=== PATIENT | female | born 1995 | race Caucasian/White ===

== ENCOUNTER → 2017-04-30 | Outpatient (REF) | payer OTHER ==
[~2017-04-30] MED LIST: ALBU8.5H IH; FLUT1DIS28 IH
[2017-04-30 20:22] LABS: PLATELET COUNT, AUTOMATED 234 K/uL (150-450)
== END ==
PROVIDERS: ATTEND Nurse Practitioner Family
DX: R10.9 Unspecified abdominal pain (principal)
CPT/HCPCS: 82040; 82247; 82310; 82374; 82435; 82565; 82947; 84075; 84132; 84155; 84295; 84450; 84460; 84520; 85025

== ENCOUNTER → 2017-12-29 | Outpatient (REF) | payer OTHER ==
[2017-12-29 18:13] LABS: PLATELET COUNT, AUTOMATED 215 K/uL (150-450)
== END ==
PROVIDERS: ATTEND Nurse Practitioner Family
DX: R10.31 Right lower quadrant pain (principal)
CPT/HCPCS: 82040; 82150; 82247; 82310; 82374; 82435; 82565; 82947; 83690; 84075; 84132; 84155; 84295; 84450; 84460; 84520; 85025

== ENCOUNTER 2018-09-10 20:54 | Emergency (ER) | payer BC, OTHER ==
--- NOTE | 2018-09-10 21:05 | ER Report ---
History and Physical Time Seen By MD: 21:02 HPI/ROS CHIEF COMPLAINT: abdominal pain HISTORY OF PRESENT ILLNESS: This is a 23 year old female. She has had abdominal pain for several days, now with nausea and vomiting and started having diarrhea today. No fevers or chills. Having abdominal pain, started in epigastric area, now down to bilateral lower abdomen. No radiation to back. No trouble with urination. No cough or shortness of breath. On continuous control, no periods, no vaginal bleeding or discharge. No possible bad food or water exposure. No sick contacts. Allergies: Coded Allergies: amoxicillin (Verified Allergy, Unknown, 05/24/16) clavulanic acid (Verified Allergy, Unknown, 05/24/16) Home Meds Active Scripts Ondansetron 4 Mg Odt (ONDANSETRON 4 MG ODT) 4 Mg Tab.rapdis, 4 MG PO Q6H PRN for NAUSEA/VOMITING, #20 TAB 0 Refills Prov:JORDAN RANGEL MD 09/10/18 Reported Medications Norgestimate-Ethinyl Estradiol (SPRINTEC) 1 Each Tablet, 1 EACH PO 09/10/18 Fluticasone/Vilanterol (Breo Ellipta 200-25 Mcg INH) 1 Each Blst.w.dev 09/10/18 Albuterol Sulfate 90 Mcg/Act (PROAIR HFA 90 MCG/ACT) 8.5 Gm Hfa.aer.ad, 1-2 PUFF IH BID, INHALER 05/24/16 Discontinued Reported Medications Fluticasone/Salmeterol (ADVAIR 250-50 DISKUS) 1 Each Disk.w.dev, 1 EACH IH BID 05/24/16 Reviewed Nurses Notes: Yes Hx Substance Use Disorder: No Hx Alcohol Use: No Constitutional Vital Sign - Last 24 Hours 09/10/18 09/10/18 09/10/18 09/10/18 21:01 21:01 21:05 21:09 Temp 98.3 Pulse 62 59 Resp 17 B/P (MAP) 138/90 (106) 138/90 (106) 138/90 Pulse Ox 93 94 O2 Delivery Room Air 09/10/18 09/10/18 09/10/18 09/10/18 21:24 21:24 21:30 21:39 Pulse 58 58 ??? B/P (MAP) ???/??? (1665) Pulse Ox 94 94 09/10/18 09/10/18 09/10/18 09/10/18 21:45 21:45 21:54 21:54 Pulse 54 54 B/P (MAP) 134/89 (104) 134/89 (104) Pulse Ox 94 94 09/10/18 09/10/18 09/10/18 09/10/18 22:00 22:00 22:09 22:24 Pulse 59 54 B/P (MAP) 120/54 (76) 120/54 (76) Pulse Ox 92 92 09/10/18 09/10/18 09/10/18 09/10/18 22:24 22:39 22:44 23:00 Pulse 54 61 64 B/P (MAP) 122/73 (89) Pulse Ox 92 91 90 09/10/18 09/10/18 23:14 23:30 Pulse 59 B/P (MAP) 118/68 (85) Pulse Ox 93 Intake and Output 09/10/18 09/10/18 09/11/18 15:03 23:03 07:03 Intake Total 1000 ml Balance 1000 ml Physical Exam General Appearance: The patient is alert. No acute distress. Eyes: Pupils are equal, round. No pallor, injection or icterus. ENT: Mucous membranes are moist. Normal oral mucosa. Posterior oropharynx is normal. Respiratory: Lungs are clear to auscultation. Cardiovascular: Regular rate and rhythm. No murmurs, gallops or rubs. Normal capillary refill. Gastrointestinal: Abdomen is tender throughout. Nondistended. No costovertebral angle tenderness with percussion. Neurological: Alert and oriented x3. No focal neurologic deficits Skin: Warm and dry. Musculoskeletal: Extremities are nontender. DIFFERENTIAL DIAGNOSIS: After history and physical exam, differential diagnosis was considered for abdominal pain including but not limited to gastritis, gastroenteritis, colitis, viral infection and urinary tract infection. Medical Decision Making Data Points Result Diagram: 09/10/18211409/10/182114 Laboratory Hematology Test 09/10/18 21:15 White Blood Count 4.7 k/uL (4.5-11.0) Red Blood Count 4.54 M/uL (4.17-5.56) Hemoglobin 14.3 g/dL (12.0-16.0) Hematocrit 41.0 % (34.0-47.0) Mean Corpuscular Volume 90.2 fL (80.0-96.0) Mean Corpuscular Hemoglobin 31.5 pg (26.0-33.0) Mean Corpuscular Hemoglobin Concent 34.9 g/dL (32.0-36.0) Red Cell Distribution Width 12.5 % (11.5-14.5) Platelet Count 194 K/uL (150-450) Mean Platelet Volume 9.1 fL (7.2-11.1) Neutrophils (%) (Auto) 31.7 % (39.4-72.5) L Lymphocytes (%) (Auto) 48.1 % (17.6-49.6) Monocytes (%) (Auto) 13.3 % (4.1-12.4) H Eosinophils (%) (Auto) 5.6 % (0.4-6.7) Basophils (%) (Auto) 1.3 % (0.3-1.4) Nucleated RBC Relative Count (auto) 0.1 /100WBC Neutrophils # (Auto) 1.5 K/uL (2.0-7.4) L Lymphocytes # (Auto) 2.2 K/uL (1.3-3.6) Monocytes # (Auto) 0.6 K/uL (0.3-1.0) Eosinophils # (Auto) 0.3 K/uL (0.0-0.5) Basophils # (Auto) 0.1 K/uL (0.0-0.1) Nucleated RBC Absolute Count (auto) 0.00 K/uL Chemistry Test 09/10/18 21:15 Sodium Level 138 mmol/L (137-145) Potassium Level 3.7 mmol/L (3.5-5.0) Chloride Level 104 mmol/L (98-107) Carbon Dioxide Level 24 mmol/L (22-31) Blood Urea Nitrogen 17 mg/dl (7-18) Creatinine 0.90 mg/dl (0.52-1.04) Glomerular Filtration Rate Calc > 60.0 Random Glucose 89 mg/dl (75-110) Calcium Level 9.1 mg/dl (8.4-10.2) Total Bilirubin 0.2 mg/dl (0.2-1.3) Aspartate Amino Transf (AST/SGOT) 27 U/L (0-35) Alanine Aminotransferase (ALT/SGPT) 25 U/L (0-56) Alkaline Phosphatase 66 U/L (0-126) Total Protein 6.9 g/dl (6.3-8.2) Albumin 4.0 g/dl (3.5-5.0) Amylase Level 90 U/L (0-110) Lipase 75 U/L (23-300) Human Chorionic Gonadotropin, Qual Negative (NEGATIVE) Urinalysis Test 09/10/18 21:03 Urine Color Yellow Urine Clarity Slightly-cloudy Urine pH 5.0 pH (4.8-9.5) Urine Specific [place] 1.027 Urine Protein Negative mg/dL (NEGATIVE) Urine Glucose (UA) Negative mg/dL (NEGATIVE) Urine Ketones Negative mg/dL (NEGATIVE) Urine Blood Large (NEGATIVE) Urine Nitrite Negative (NEGATIVE) Urine Bilirubin Negative (NEGATIVE) Urine Urobilinogen Negative mg/dL (0.2-1.9) Urine Leukocyte Esterase Trace (NEGATIVE) Urine RBC 6 /HPF (0-2/HPF) Urine WBC 6 /HPF (0-5/HPF) Urine Squamous Epithelial Cells Many /LPF (</=FEW) Urine Bacteria Few /HPF (NONE-FEW) Urine Mucus Few /HPF (NONE-FEW) EKG/Imaging Imaging INDICATION: Abdominal pain for 6 days, nausea and vomiting for 3 days. Wors ening symptoms. EXAM DATE: 09/10/2018 9:20 PM COMPARISON: Chest radiographs 03/05/2018, abdomen radiographs 04/30/2017. FINDINGS: PA view the chest with upright and spine AP views of the abdomen. The lungs are well-expanded and clear. No pleural effusion or pneumothorax. Heart size is normal. Bowel gas pattern is nonobstructive. No pneumatosis, pneumoperitoneum or portal venous gas. No evidence of large volume ascites or mass. Moderate amount of stool in the colon. No acute osseous abnormality. Mild S-shaped curvature of the thoracolumbar spine. 2 cylindrical densities over the pelvis are likely external to the patient and measured approximately 2.0 x 0.5 cm. IMPRESSION: 1. Moderate amount of stool in the colon may indicate constipation. 2. Clinical densities over the pelvis are likely related to the patient's clothing, correlate with exam. Report Dictated By: Corky Davis MD at 09/10/2018 9:51 PM EXAMINATION: CT abdomen with IV contrast CT pelvis with IV contrast HISTORY: Epigastric abdominal pain. COMPARISON: Abdominal radiographs from the same day. TECHNIQUE: Axial images were taken through the abdomen and pelvis with intravenous contrast. Sagittal and coronal reformatted images are also submitted. CONTRAST: 75 mL of IV Isovue-370 One of the following dose optimization techniques was utilized in the performance of this exam: Automated exposure control; adjustment of the mA and/or kV according to the patient's size; or use of an iterative reconstruction technique. Specific details can be referenced in the facility's radiology CT exam operational policy. FINDINGS: Liver/biliary: Negative. The gallbladder is contracted. Pancreas: Negative. Spleen: Negative. Adrenal glands: Negative. Kidneys: Negative. Pelvic structures: Negative. Bowel: The bowel is normal caliber without obvious focal wall thickening. The appendix appears normal. Peritoneum/retroperitoneum/mesenteries: There is trace free fluid in the pelvis. No intraperitoneal free air. Vessels: Negative. Musculoskeletal/body wall: Negative. Lymph node assessment: Negative. Lower chest: Negative. IMPRESSION: Trace free fluid in the pelvis which is physiologic in volume. Otherwise no CT evidence of acute pathology in the abdomen or pelvis. Report Dictated By: Aamir Jaquez MD at 09/10/2018 10:50 PM ED Course/Re-evaluation Clinical Indication for ER IV: Hydration, IV Access ED Course IV Zofran and fluids given. Labs negative. CT Scan done and negative. Reviewed all results with the patient. Likely viral gastroenteritis and home with Zofran as needed. Decision to Disposition Date: Sep 10, 2018 Decision to Disposition Time: 23:23 Depart Departure Latest Vital Signs Vital Signs Date Time Temp Pulse Resp B/P (MAP) Pulse Ox O2 Delivery O2 Flow Rate FiO2 09/10/18 23:30 118/68 (85) 09/10/18 23:14 59 93 09/10/18 21:05 98.3 17 Room Air Impression: Primary Impression: Viral syndrome Condition: Improved Disposition: HOME OR SELF-CARE New Scripts Ondansetron 4 Mg Odt (ONDANSETRON 4 MG ODT) 4 Mg Tab.rapdis 4 MG PO Q6H PRN for NAUSEA/VOMITING, #20 TAB 0 Refills Prov: JORDAN RANGEL MD 09/10/18 Patient Instructions: Viral Syndrome (ED) Additional Instructions: No problems found on labs and imaging tonight. This appears likely to be a viral syndrome. We recommend taking Zofran 4 mg, one every 6 hours as needed for nausea and vomiting. Rest and increase fluid intake over the next few days. JORDAN RANGEL MD Sep 10, 2018 21:05
[2018-09-10] MEDS ORDERED: FAMOTIDINE 20 MG TAB PO ONE (21:10)
[2018-09-10] MEDS ORDERED: ONDANSETRON 4 MG ODT TABDP SL ONE (21:10)
[2018-09-10] MEDS ORDERED: predniSONE 20 MG TAB PO ONE (21:10)
[2018-09-10] MEDS ORDERED: diphenhydrAMINE 25 MG CAP PO ONE (21:10)
[2018-09-10] MEDS ORDERED: NORG1TAB74 PO (21:11)
[2018-09-10] MEDS ORDERED: FLUT1BLS3 (21:11)
[2018-09-10] MEDS ORDERED: ONDANSETRON 4 MG/2 ML VIAL IVP ONE (21:20)
[2018-09-10] MEDS ORDERED: NS(*) 0.9% 1000 ML BAG 1,000 ML IV ONE (21:20)
[2018-09-10 21:27] LABS: PLATELET COUNT, AUTOMATED 194 K/uL (150-450)
--- NOTE | 2018-09-10 22:00 | RADIOLOGY IMAGING REPORT ---
FACILITY: [facility] - [place] PATIENT NAME: Tram Woodward : 1995 MR: [id number] V: [id number] EXAM DATE: ORDERING PHYSICIAN: JORDAN RANGEL TECHNOLOGIST: [place] [facility] [place] Tram Woodward : 1995 Visit/Account:[id number] Date of Sevice: 09/10/2018 INDICATION: Abdominal pain for 6 days, nausea and vomiting for 3 days. Worsening symptoms. EXAM DATE: 09/10/2018 9:20 PM COMPARISON: Chest radiographs 03/05/2018, abdomen radiographs 04/30/2017. FINDINGS: PA view the chest with upright and spine AP views of the abdomen. The lungs are well-expanded and clear. No pleural effusion or pneumothorax. Heart size is normal. Bowel gas pattern is nonobstructive. No pneumatosis, pneumoperitoneum or portal venous gas. No eviden ce of large volume ascites or mass. Moderate amount of stool in the colon. No acute osseous abnormality. Mild S-shaped curvature of the thoracolumbar spine. 2 cylindrical densities over the pelvis are likely external to the patient and measured approximately 2.0 x 0.5 cm. IMPRESSION: 1. Moderate amount of stool in the colon may indicate constipation. 2. Clinical densities over the pelvis are likely related to the patient's clothing, correlate with e xam. Report Dictated By: Corky Davis MD at 09/10/2018 9:51 PM Report E-Signed By: Corky Davis MD at 09/10/2018 9:54 PM WSN:[id number]
[2018-09-10] MEDS ORDERED: IOPAMIDOL 76% 100 ML INFUS BTL 100 ML ONE (22:33)
--- NOTE | 2018-09-10 23:04 | RADIOLOGY IMAGING REPORT ---
FACILITY: [facility] PATIENT NAME: Tram Woodward : 1995 MR: [id number] V: [id number] EXAM DATE: ORDERING PHYSICIAN: JORDAN RANGEL TECHNOLOGIST: Location[place] [facility] [place] Patient: Tram Woodward : 1995 Visit/Account:[id number] Date of Sevice: 09/10/2018 EXAMINATION: CT abdomen with IV contrast CT pelvis with IV contrast HISTORY: Epigastric abdominal pain. COMPARISON: Abdominal radiographs from the same day. TECHNIQUE: Axial images were taken through the abdomen and pelvis with intravenous contrast. Sagitt al and coronal reformatted images are also submitted. CONTRAST: 75 mL of IV Isovue-370 One of the following dose optimization techniques was utilized in the performance of this exam: Autom ated exposure control; adjustment of the mA and/or kV according to the patient's size; or use of an i terative reconstruction technique. Specific details can be referenced in the facility's radiology C T exam operational policy. FINDINGS: Liver/biliary: Negative. The gallbladder is contracted. Pancreas: Negative. Spleen: Negative. Adrenal glands: Negative. Kidneys: Negative. Pelvic structures: Negative. Bowel: The bowel is normal caliber without obvious focal wall thickening. The appendix appears normal . Peritoneum/retroperitoneum/mesenteries: There is trace free fluid in the pelvis. No intraperitoneal f ree air. Vessels: Negative. Musculoskeletal/body wall: Negative. Lymph node assessment: Negative. Lower chest: Negative. IMPRESSION: Trace free fluid in the pelvis which is physiologic in volume. Otherwise no CT evidence of acute path ology in the abdomen or pelvis. Report Dictated By: Aamir Jaquez MD at 09/10/2018 10:50 PM Report E-Signed By: Aamir Jaquez MD at 09/10/2018 10:57 PM WSN:[id number]
[2018-09-10] MEDS ORDERED: ONDA4TAB9 PO (23:27)
[2018-09-10 23:30] VITALS: BP 118/68
[2018-09-10] MEDS ORDERED: ONDANSETRON 4 MG ODT TH SL ONE (23:30)
== END 2018-09-10 23:38 | disposition home or self-care (01) ==
LOC: ER 21:16
DX: B34.9 Viral infection, unspecified (principal)
CPT/HCPCS: 74022; 74177; 81001; 82150; 83690; 84703; 85025; 96361; 96374; 99284; J2405; J7030; Q9967; S0119; 82040; 82247; 82310; 82374; 82435; 82565; 82947; 84075; 84132; 84155; 84295; 84450; 84460; 84520